=== PATIENT | female | born 1940 | race Caucasian/White ===

== ENCOUNTER → 2024-07-25 07:48 | Outpatient (REF) | payer OTHER, SELFPAY | LOC: RST 07:48 | PROVIDERS: ATTENDING PHYSICIAN Otolaryngology; FAMILY PHYSICIAN Internal Medicine; REFERRING PHYSICIAN Internal Medicine Gastroenterology | DX: R13.14 Dysphagia, pharyngoesophageal phase (principal); R63.30 Feeding difficulties, unspecified | CPT/HCPCS: 74230; 92611 ==

== ENCOUNTER 2024-09-08 19:22 | Observation (INO) | payer OTHER, SELFPAY ==
[2024-09-08] VITALS (9 sets, daily range): BP systolic 149–199; BP diastolic 72–100; BMI 20.9; BMI 20.2
--- NOTE | 2024-09-08 13:42 | ED.CVA ---
History of Present Illness
General
Chief Complaint: CVA/TIA Symptoms
Time Seen by Provider: 09/08/24 13:41
Onset of Stroke Symptoms
Onset of symptoms known: Yes
Date of onset of symptoms: 09/08/24
Time of onset of symptoms: 12:00
Time pt last seen normal is known: Yes
Date last time pt seen normal: 09/08/24
Time last time pt seen normal: 11:59
History of Present Illness
History of Present Illness:
TIME OF INITIAL ENCOUNTER: 1:45 PM
HPI: Had esophageal dilatations / botox Sunday at [place]. I spoke to the daughter over the phone initially who tells me that at 12pm today could not formulate words, labored breathing. Sent here by EMS. The patient currently has no specific
complaints
EXAM:
GENERAL: Appears somewhat generally weak
HEENT: Moist oral mucosa
CARDIOVASCULAR: No murmurs, normal heart rate, regular rhythm, No chest wall tenderness
PULMONARY: No respiratory distress, breath sounds are clear and equal
ABDOMEN: Soft with no peritoneal signs, no tenderness
NEUROLOGIC: 4+ out of 5 strength right upper extremity, no expressive aphasia currently, normal strength the lower extremities, she knows it is August and knows she is 84 years old
PSYCHIATRIC: Appropriate mental status, normal insight and judgement
EXTREMITIES: Decreased active range of motion at the right shoulder
SKIN: No rash, no lesions
NUMBER AND COMPLEXITY OF PROBLEMS ADDRESSED AT THE ENCOUNTER
� Chronic conditions affecting care: A-fib, high blood pressure
� Acute Exacerbation and/or Progression of Chronic Illness:
� Differential Diagnosis includes: CVA, TIA, electrolyte abnormality
AMOUNT AND/OR COMPLEXITY OF DATA TO BE REVIEWED AND ANALYZED
� I performed an independent evaluation of and my interpretation is:
EKG: Sinus 67, PAC, some artifact, nonspecific ST abnormality
CT: Noncontrast brain CT unremarkable
X-rays:
Laboratory Studies: CBC and chemistries unremarkable
Other:
� Review of other/old records: I reviewed speech evaluation note from last month
� Clinical information was obtained by an independent historian: I spoke to the daughter over the phone
� Prescriptions/Medications Considered but not given:
� Further testing considered but not performed:
RISK OF COMPLICATIONS AND/OR MORBIDITY OR MORTALITY OF PATIENT MANAGEMENT
� Social determinants of health affecting care: Lives at home
� Discussion with other providers: Discussed case with Dr. Ayers who recommended MRI brain
� Escalation of care including admission/observation vs risk of discharge considered:
ANY OTHER UPDATES:
3 PM: I reassessed patient and the patient now has a stroke scale of 0. She no longer has any right upper extremity weakness. There is no dysarthria but hoarse voice persists from unknown reason related to recent procedure at [place]. Family states
she does not have a history of atrial fibrillation and is in sinus right now (A-fib was listed on her chart).
Past History
Past History
ED Past Medical History: Arrthythmia, GERD and HTN
ED Past Surgical History: Orthopedic
Social History
Tobacco: Non-smoker
Alcohol: Occasional
Drug: None
Personal:
Living: with family
Phy Exam
Physical Exam
Physical Exam:
See HPI
Course
Orders/Labs/Results
Orders:
Orders
09/08/24 13:49
Electrocardiogram (*1) Urgent
Reason for Study: Hypertension, Benign
09/08/24 13:50
EKG- Treatment ONCE
09/08/24 13:52
CMP [Comprehensive Metabolic Panel] Urgent
Complete Blood Count/With Diff Urgent
09/08/24 13:55
CT Head W/o Iv Contrast Urgent
Comment:
Reason For Exam: expressive aphasia, ?RUE weak
09/08/24 15:12
PTT Urgent
Prothrombin Time Urgent
Troponin I Urgent
09/08/24 15:39
Urinalysis Reflex To Culture Urgent
Date Specimen was Collected: 09/08/24
Time Specimen was Collected: 15:13
09/08/24 16:04
Lipid Profile [Cardiovascular Evaluation] Routine
Comment: May add to blood work in lab
MR Brain Without Contrast Routine
Comment:
Reason For Exam: Aphasia,? Stroke
Recent pill cam endoscopy?: No
09/08/24 16:05
MA [facility] Routine
Comment:
Reason For Exam: intracranial stenosis
Recent pill cam endoscopy?: No
MA Neck With Contrast Routine
Comment:
Reason For Exam: Stenosis
Recent pill cam endoscopy?: No
Abnormal Lab Results
09/08/24
13:52
MCH 31.2 H pg
(27.0-31.0)
Absolute Lymphs (auto) 3.8 H 10^3/uL
(1.2-3.4)
Neutrophils % 42.1 L %
(42.2-75.2)
Glucose 108 H mg/dl
(70-99)
09/08/24 13:52
09/08/24 13:52
Vital Signs
Initial and Last Documented VS:
Initial Vital Signs
Temp Pulse Resp BP Pulse Ox
98.0 F 66 18 199/100 95
09/08/24 13:41 09/08/24 13:41 09/08/24 13:41 09/08/24 13:41 09/08/24 13:41
Last Documented Vital Signs
Temp Pulse Resp BP Pulse Ox
98.0 F 72 19 172/89 95
09/08/24 13:41 09/08/24 15:15 09/08/24 15:15 09/08/24 15:11 09/08/24 13:41
*Critical Care Note
Total Time (30-74mins, 75-104mins- exclusive of procedures): Not Applicable
ED Attending Note
-
Portions of this chart may have been created with voice recognition software.� Occasional wrong word or��sound alike� substitutions may have occurred due to the inherent limitations of voice recognition software.
Discharge Plan
Departure
Prescriptions:
No Action
cholecalciferol (vitamin D3) 1,000 UNITS tablet
1,000 units PO DAILY
multivitamin with folic acid [Tab-A-Iraida] 1 TABLET tablet
1 tab PO DAILY
cyanocobalamin (vitamin B-12) 1,000 MCG tablet
1,000 mcg PO DAILY
amlodipine 2.5 MG tablet
2.5 mg PO DAILY
acetaminophen [Tylenol Extra Strength] 500 MG tablet
1,000 mg PO HSPRN PRN (Reason: mildpain)
omeprazole 20 MG tablet,delayed release (DR/EC)
20 mg PO DAILY
carvedilol 6.25 MG tablet
6.25 mg PO BID Qty: 60 2RF
nitroglycerin 0.4 MG tablet, sublingual
0.4 mg sublingual [id number] PRN (Reason: Chest pain) Qty: 1 0RF
aspirin 81 MG tablet,chewable
81 mg PO DAILY 0RF
cefdinir 300 mg capsule
300 mg PO BID 10 Days Qty: 20 0RF
lidocaine [Lidoderm] 5 % adhesive patch,medicated
1 patch topical DAILY Qty: 30 0RF
methylprednisolone [Medrol (Ovidio)] 4 mg tablets,dose pack
See Rx Instructions .ROUTE .COMPLEX Qty: 21 0RF
Rx Instructions:
orally per package directions
Interventions
Interventions:
*Risk Screen - Suicide Last Done: 09/08/24 13:41
*General Assessment Last Done: 09/08/24 13:41
*Neglect/Abuse Screening Last Done: 09/08/24 13:41
*ED COVID-19 Vaccine History Last Done: 09/08/24 13:41
ED- Pulmonary Assessment Last Done: 09/08/24 13:41
ED- Neurological Assessment Last Done: 09/08/24 13:41
ED- Cardiac Assessment Last Done: 09/08/24 13:41
Discharge Date and Time
Print Language: PASHTO
[2024-09-08 14:07] LABS: % Eosinophils 2.7 % (0-6); % Immature Granulocytes 0.2 % (0-0.5); % Neutrophils 42.1 % (42.2-75.2); Absolute Basophils 0.1 10^3/uL (0-0.2); Absolute Eosinophils 0.2 10^3/uL (0-0.7); Absolute Lymphocytes 3.8 10^3/uL (1.2-3.4); Absolute Monocytes 0.6 10^3/uL (0.1-0.6); Absolute Neutrophils 3.4 10^3/uL (1.4-6.5); Hematocrit 43.5 % (37.0-47.0); Hemoglobin 14.8 g/dL (12.0-16.0); Mean Corpuscular Hgb 31.2 pg (27.0-31.0); Mean Corpuscular Volume 91.8 fL (81.0-99.0); Mean Platelet Volume 9.8 fL (7.4-10.4); Nucleated Red Blood Cells % 0 %; Platelet Count 261 10^3/uL (130-400); Red Blood Cell Count 4.74 10^6/uL (4.20-5.40); White Blood Cell Count 8.1 10^3/uL (4.8-10.8)
[2024-09-08 14:25] LABS: ALT (SGPT) 15 U/L (0-35); AST (SGOT) 23 U/L (14-36); Alkaline Phosphatase 78 U/L (38-126); Blood Urea Nitrogen 17 mg/dl (7-17); Calcium 9.1 mg/dl (8.4-10.2); Carbon Dioxide 25 mmol/L (22-30); Chloride 105 mmol/L (98-107); Estimated Creatinine Clearance 44 ml/min; Glucose 108 mg/dl (70-99); Potassium 4.2 mmol/L (3.5-5.1); Sodium 140 mmol/L (135-145); Total Bilirubin 0.9 mg/dl (0.2-1.3); Total Protein 6.6 g/dl (6.3-8.2); eGFR > 60.00
--- NOTE | 2024-09-08 15:35 | CON.NEURO ---
Neuro Assessment/Plan
Assessment
IMPRESSIONS/RECOMMENDATIONS:
Abrupt onset aphasia beginning gradually after a botulinum toxin injection and esophageal dilatation in a patient with significant hypertension
Differential diagnosis includes hypertensive encephalopathy also producing the patient's transient nausea and headache. Possibility of stroke is not eliminated
Plan
Continue aspirin 81 mg daily which had been discontinued 4 days prior to the recent procedure
Goal of near normotension
Check MRA head and neck based on the patient's intractable hypertension
Check MRI of brain
Provide antinausea agents to treat patient's residual migraine headache
Stroke educational materials to be provided
Speech therapy evaluation
Will continue to follow patient. Thank you.
Consultation
Order
Date of Consultation: 09/08/24
Requesting Provider: Emergency department provider
Reason for Consult: Aphasia
Subjective/Objective
Subjective Data
Date of Service: September 08, 2024
Right handed female patient presenting with new sudden onset aphasia.
Reports that speech has not been at baseline since she had Botox injections at [place] this past Sunday (4 days ago).
Patient was talking on the phone with her son when she had sudden onset of trouble with her speech about 1200 today. Speech changes after worst lasted 5-10 minutes.
Denies vision changes
Does report slight right sided headache starting this am which has improved.
She does admit to headaches with elevated blood pressure. Recently she has had frequent elevations in BP.
(+) nausea enroute to the hospital.
No trouble with balance
Pt reports severe diarrhea yesterday
No issues with bladder or bowel
Daughter felt she was SOB and laboring to speak.
Denies any history of atrial fibrillation.
This was second round of Botox. The last was 5 years ago.
ASA was held 4 days prior to procedure
Objective Data
Vital Signs
Temp Pulse Resp BP Pulse Ox
36.7 C 72 19 172/89 95
10/21/24 13:41 09/08/24 15:15 09/08/24 15:15 09/08/24 15:11 09/08/24 13:41
Lab Results
09/08/24 13:52
09/08/24 13:52
PT Cancelled 09/08/24 13:52
INR Cancelled 09/08/24 13:52
APTT Cancelled 09/08/24 13:52
Sodium 140 mmol/L (135-145) 09/08/24 13:52
Potassium 4.2 mmol/L (3.5-5.1) 09/08/24 13:52
BUN 17 mg/dl (7-17) 09/08/24 13:52
Glucose 108 mg/dl (70-99) H 09/08/24 13:52
Calcium 9.1 mg/dl (8.4-10.2) 09/08/24 13:52
Patient Allergies
amoxicillin Allergy (Verified 10/03/23 11:27)
Unknown
ibuprofen [From Motrin] Allergy (Verified 10/03/23 11:27)
Swelling
pentazocine [From Talwin] Allergy (Verified 10/03/23 11:27)
Tongue Swelling
prochlorperazine [From Compazine] Allergy (Verified 10/03/23 11:27)
Swelling
Review of Systems
-
History Source: Patient
All other systems: Reviewed and negative
EENT: Swallowing Difficulty
Respiratory: Trouble Breathing (Now resolved)
Cardiac: Negative Chest Pain
Abdomen/GI: Diarrhea (The day after her procedure); Negative Incontinence of Stool
Neuro: Headache
Physical Exam
-
General: No Apparent Distress and Appears Stated Age
Eyes: OU Absent Papilledema, Round OU, [place] Conjunctivae and No Ptosis
HEENT: Anicteric, Moist Mucous Membranes and Other (Bleeding right soft palate)
Neck: Full Range of Motion
Respiratory: No Dyspnea
Cardiac: No JVD
GI: Non-distended
Skin: Unremarkable
Extremities: No Clubbing, No Cyanosis and No Edema
Psych: Negative Intact Judgement/Insight
Extended Neurological Exam
Mood & Affect: Mood Unremarkable and Affect Unremarkable
Attention Span & Concentration: Awake, Alert, Interactive and Mild Difficulty with 2 Step Request
Memory: Unremarkable
Tremor: Hand Tremor Absent and Head Tremor Absent
Speech: Quantity Unremarkable, Hoarse and Other (No difficulty with naming or reading)
Cranial Nerve II: Left Eye: Pupillary Reactivity Unremarkable, Pupillary Size Unremarkable and Visual Galindo Intact
Cranial Nerve II: Right Eye: Pupillary Reactivity Unremarkable, Pupillary Size Unremarkable and Visual [place]indo Intact
Cranial Nerves III, IV, : Extraocular Movement: Extraocular Movement Full in all Directions
Cranial Nerve VII: Facial Symmetry: Normal Facial Symmetry
Cranial Nerve VIII: Hearing: Unremarkable Hearing to Normal Conversational Volume
Cranial Nerves IX, X: Palate Movement: Palate Elevation Symmetric
Cranial Nerve XI: Shoulder Shrug: Unremarkable
Cranial Nerve XII: Tongue Protusion: Midline
Muscle Strength, Overall: Full Throughout
Muscle Bulk & Tone: Bulk Unremarkable and Tone Unremarkable
Pronator Drift: No Drift in Upper Extremities and No Drift in Lower Extremities
Deep Tendon Reflexes: Unremarkable Throughout
Touch Sensation: Unremarkable and Double Simultaneous Stimulation Unremarkable
Coordination: [id number] Testing Unremarkable
Babinski Sign: Absent Bilaterally
Data Reviewed
-
CT Head: Report Reviewed and Image Reviewed
MRI Head: Ordered
MRA Head: Ordered
MRA Neck: Ordered
Labs: Report Reviewed
Lipid Profile: Ordered
Reviewed with: Physician, Patient and Family
Old Records: Summarized
Medications
-
Home Medications
�Medication �Instructions �Recorded
cholecalciferol (vitamin D3) 25 1,000 units PO DAILY Supplement 08/08/19
mcg (1,000 unit) tablet
multivitamin with folic acid 400 1 tab PO DAILY Supplement 08/08/19
mcg tablet (Tab-A-Iraida)
acetaminophen 500 mg tablet 1,000 mg PO HSPRN PRN mildpain 06/24/21
(Tylenol Extra Strength)
amlodipine 2.5 mg tablet 2.5 mg PO DAILY Blood pressure 06/24/21
cyanocobalamin (vitamin B-12) 1,000 mcg PO DAILY Supplement 06/24/21
1,000 mcg tablet
omeprazole 20 mg tablet,delayed 20 mg PO DAILY Gastrointestinal 10/09/21
release issue
aspirin 81 mg chewable tablet 81 mg PO DAILY 10/16/21
carvedilol 6.25 mg tablet 6.25 mg PO BID #60 tabs 10/16/21
nitroglycerin 0.4 mg sublingual 0.4 mg sublingual [id number] PRN 10/16/21
tablet Chest pain ##1
cefdinir 300 mg capsule 300 mg PO BID 10 days #20 caps 10/03/23
lidocaine 5 % topical patch 1 patch topical DAILY #30 ea 10/03/23
(Lidoderm)
methylprednisolone 4 mg tablets in See Rx Instructions PO .COMPLEX 10/04/23
a dose pack (Medrol (Ovidio)) #21 ea
[2024-09-08 16:06] LABS: Troponin I < 0.012 ng/ml
[2024-09-08 16:22] LABS: Urine Albumin Negative (Neg - Trace); Urine Bilirubin Negative (Negative); Urine Character Clear (Clear); Urine Color Yellow; Urine Glucose Negative (Negative); Urine Ketone Negative (Negative); Urine Leukocyte 1+ (Negative); Urine Nitrite Negative (Negative); Urine Occult Blood Negative (Negative); Urine Urobilinogen Negative (Neg - 1+)
[2024-09-08 17:01] LABS: Urine Bacteria Few (Negative)
--- NOTE | 2024-09-08 18:13 | HPS.HSE ---
Addendum entered and electronically signed by CARRIE Young 09/08/24 19:08:
Botox was on 09/03/24 NOT 09/02
Original Note:
Family Physician
-
Family Physician:
Chief Complaint
-
Aphasia
History of Present Illness
84-year-old female whose granddaughter told EMS that her mother was having difficulty formulating her words at 12 PM. The patient states she noticed after eating soup she was having difficulty expressing her words while she was talking to her son
on the phone. She did states she had a frontal headache at that time which has currently resolved. She denies any weakness to her body. Her granddaughter is at bedside who noticed subtle left-sided facial droop with some slight slurring of words
and looking very tired. She reports she normally is very awake alert and active with very young great-grandchildren. She has history of esophageal dilations and history of Botox on Tuesday September 03, 2024. She had prior Botox injection in 2019
without any difficulty he also presented to the ER hypertensive 199/102. She denies fever, chills, chest pain, palpitations, shortness of, cough, abdominal pain, nausea, vomiting, diarrhea, urinary symptoms. She is past medical history of
hypertension, dysphagia secondary to esophageal stricture
Medical History
Past Medical History
Past Medical History: Reports Other
Additional Past Medical History:
Hypertension
Chronic dysphagia requiring esophageal dilation
Past Surgical History: Reports Other
Additional Past Surgical History:
cholecystitis requiring cholecystectomy and drainage tube September 2021
Tubal ligation
Cataract extraction bilateral
Botox esophageal area 2018
Social History
Tobacco: Non-smoker
Alcohol: None
Drug: None
Personal:
Living: With Family ()
Employment: Retired
Family History
Family History: Not pertinent
Allergies / Home Medications
Allergies reflects when Allergies were last updated in [facility].
Home Medications with original date entered in [facility]
Allergy/Medication List:
Allergies
Allergy/AdvReac Type Severity Reaction Status Date / Time
amoxicillin Allergy Unknown Verified 10/03/23 11:27
ibuprofen [From Motrin] Allergy Swelling Verified 10/03/23 11:27
pentazocine [From Talwin] Allergy Tongue Verified 10/03/23 11:27
Swelling
prochlorperazine Allergy Swelling Verified 10/03/23 11:27
[From Compazine]
Home Medications
aspirin 81 mg chewable tablet 81 mg PO DAILY 10/16/21
carvedilol 6.25 mg tablet 6.25 mg PO BID #60 tabs 10/16/21
Review of Systems
-
History Source: Patient and Family (Granddaughter at bedside)
A 12 point ROS was completed and negative except as noted: Yes
Constitutional: Reports Fatigue; Denies Fever or Chills
EENT: Reports Other (Slight left corner mouth droop); Denies Sore Throat or Mouth Swelling
Respiratory: Denies Cough or Trouble Breathing
Cardiac: Denies Chest Pain, Diaphoresis, Palpitations or Syncope
Abdomen/GI: Denies Abdominal Pain, Nausea, Vomiting, Diarrhea, Constipated, Bloody Stools or Black Stools
: Denies Dysuria, Frequency, Flank Pain, Incontinence, Difficulty Voiding or Urgency
Musculoskeletal: Denies Joint Pain or Edema
Skin: Denies Itching or Rash
Neurological: Reports Headache (Frontal currently resolved); Denies Dizzy
Endocrine: Reports No Symptoms
Hematologic/Lymphatic: Reports No Symptoms
Psych: Reports Calm
Physical Exam
Vital Signs
Vital Signs
Temp Pulse Resp BP Pulse Ox
98.0 F 84 20 195/94 95
09/08/24 13:41 09/08/24 17:37 09/08/24 17:37 09/08/24 17:37 09/08/24 13:41
Physical Exam
General: Conversant (Slight sluggish but appears very tired); No Pain or Fever
HEENT: NormoCephalic, Anicteric, Moist mucous membranes, PERRLA, [employer] Conjunctivae and No Ptosis
Respiratory: Clear; No Wheezes, Rales or Rhonchi
Cardiac: S1/S2 and Regular Rhythm; No Murmur, Rub, Gallop or Peripheral Edema
Breast: Deferred by me
GI: Soft, Non Tender, Non Distended, Normal Bowel Sounds and No Hepatosplenomegaly
Rectal: Deferred by Provider
Genito-urinary: Deferred by me
Musculoskeletal: No Clubbing, No Cyanosis and No Edema
Skin: Warm and Dry; No Rash
Neuro: AO x 3, Nonfocal/grossly intact, No Sensory Deficits, Slurred Speech (Slight slow slurring of speech, ), Facial Droop (slight corner of mouth droop) and Other (Sluggish [id number] exam); No Tremors
Psych: Calm
Laboratory Results
-
09/08/24 13:52
09/08/24 13:52
Laboratory Results
PT Cancelled 09/08/24 15:12
INR Cancelled 09/08/24 15:12
APTT Cancelled 09/08/24 15:12
Total Bilirubin 0.9 mg/dl (0.2-1.3) 09/08/24 13:52
AST 23 U/L (14-36) 09/08/24 13:52
ALT 15 U/L (0-35) 09/08/24 13:52
Alkaline Phosphatase 78 U/L (38-126) 09/08/24 13:52
Troponin I < 0.012 ng/ml 09/08/24 15:12
Data Reviewed
-
Diagnostic Radiology: Report Reviewed by me
CT Scan: Report Reviewed by me
MRI: Report Reviewed by me
Lab Data: Labs Reviewed by me
Impression/Plan
-
Impression/plan:
Admit to telemetry
#Aphasia/subtle left-sided facial droop concern for TIA versus CVA versus hypertensive encephalopathy
-Consult neurology
Neurochecks every 4 hours
-MRI/MRI brain neck
-Consult speech therapy
Continue aspirin 81 mg daily
-Goal near normotension
-Check lipid profile, HgbA1c
-Speech swallow eval
-PT/OT/case management eval
MRA neck/brain: No focal significant stenosis, aneurysm or occlusion
MRI brain: No acute intracranial abnormality mild atrophy small vessel ischemic disease
#Hypertensive urgency/HTN�benign
BP 199/100
-IV hydralazine 10 mg every 6 hours as needed SBP> 165 AGUILAR 110
-Continue carvedilol 6.25 mg twice daily and patient prophylactic aspirin 81 mg daily
CKD stage IIIb
Creat 0.8, CrCl 44
#Hx cholecystitis requiring cholecystectomy and drainage tube September 2021
#COVID-19 infection November 2020
DVT prophylaxis
SCDs
Full code
--- NOTE | 2024-09-08 19:09 | W.PN.UPDATE ---
Update Note
Progress Note Update
This is addendum to H&P written by Rebecca Son on 09/08/2024. Patient seen and examined independently with NEURO OPHTHALMOLOGIST.
84-year-old female past medical history of hypertension, CKD 3B, chronic dysphagia status post dilation and Botox injection 5 days ago for likely achalasia presenting with difficulty forming words at 12 PM with headache. Patient with blood pressure
of 199/100. No focal neurological deficits apart from subtle left facial droop and dysarthria, sluggish [id number] bilaterally.
MRI/MRA head and neck unremarkable. Neurology thinks possibly hypertensive encephalopathy versus TIA. Check speech and swallow evaluation. Blood pressure control with hydralazine. Start amlodipine 5 mg.
[2024-09-08] MEDS: NORVASC 5 MG PO (20:04)
[2024-09-08 20:17] LABS: COVID-19 Antigen Negative (Negative)
[2024-09-08 20:38] LABS: HDL Cholesterol 87 mg/dl; LDL Cholesterol, Calculated 113 mg/dl; Total Cholesterol 221 mg/dl (50-199); Triglyceride 106 mg/dl (10-149); Very Low Density Lipoprotein 21 mg/dl (0-30)
[2024-09-08 20:41] LABS: INR 1.09; PT 13.9 Sec (11.4-14.6)
[2024-09-08 20:42] LABS: APTT 27.6 Sec (23.4-35.0)
--- NOTE | 2024-09-08 20:45 | PTCARENOTE ---
Pt arrived onto floor @2044. Pt AAOx3 and able to walk into room with no assistance. Pt with no complaints of pain or SOB at this time. Pt oriented to room and call malcolm; will continue to monitor
[2024-09-08] MEDS: COREG 6.25 MG PO (21:09)
[2024-09-09] VITALS (8 sets, daily range): BP systolic 122–163; BP diastolic 66–86; PULSE 66; O2SAT 97; BMI 20.2
[2024-09-09 07:38] LABS: % Basophils 1.2 % (0-2); % Eosinophils 4.3 % (0-6); % Immature Granulocytes 0.2 % (0-0.5); % Lymphocytes 47.9 % (20.5-51.1); % Monocytes 9.6 % (1.7-9.3); % Neutrophils 36.8 % (42.2-75.2); Absolute Basophils 0.1 10^3/uL (0-0.2); Absolute Eosinophils 0.3 10^3/uL (0-0.7); Absolute Lymphocytes 2.9 10^3/uL (1.2-3.4); Absolute Monocytes 0.6 10^3/uL (0.1-0.6); Absolute Neutrophils 2.2 10^3/uL (1.4-6.5); Hematocrit 42.4 % (37.0-47.0); Hemoglobin 14.6 g/dL (12.0-16.0); Mean Corp Hgb Conc. 34.4 g/dL (33.0-37.0); Mean Corpuscular Hgb 31.4 pg (27.0-31.0); Mean Corpuscular Volume 91.2 fL (81.0-99.0); Mean Platelet Volume 9.8 fL (7.4-10.4); Nucleated Red Blood Cells % 0 %; Platelet Count 245 10^3/uL (130-400); Red Blood Cell Count 4.65 10^6/uL (4.20-5.40); White Blood Cell Count 6.1 10^3/uL (4.8-10.8)
[2024-09-09] MEDS: COREG 6.25 MG PO ×2 (07:38→20:00)
[2024-09-09] MEDS: LOW STRENGTH ASPIRIN 81 MG PO (07:38)
[2024-09-09] MEDS: NORVASC 5 MG PO (07:39)
[2024-09-09 08:12] LABS: ALT (SGPT) 13 U/L (0-35); AST (SGOT) 21 U/L (14-36); Albumin 3.6 g/dl (3.5-5.0); Alkaline Phosphatase 63 U/L (38-126); Blood Urea Nitrogen 15 mg/dl (7-17); Calcium 8.7 mg/dl (8.4-10.2); Carbon Dioxide 26 mmol/L (22-30); Chloride 105 mmol/L (98-107); Estimated Creatinine Clearance 58 ml/min; Glucose 96 mg/dl (70-99); Potassium 4.2 mmol/L (3.5-5.1); Sodium 142 mmol/L (135-145); Total Protein 6.2 g/dl (6.3-8.2); eGFR > 60.00
--- NOTE | 2024-09-09 09:09 | W.PN.HOSP.TC ---
Today's Communication/Plan
-
VSE tomorrow
Assessment / Plan
Assessment / Plan
HPI: 84-year-old female whose granddaughter told EMS that her mother was having difficulty formulating her words at 12 PM. The patient states she noticed after eating soup she was having difficulty expressing her words while she was talking to her
son on the phone. She did states she had a frontal headache at that time which has currently resolved. She denies any weakness to her body. Her granddaughter is at bedside who noticed subtle left-sided facial droop with some slight slurring of
words and looking very tired. She reports she normally is very awake alert and active with very young great-grandchildren. She has history of esophageal dilations and history of Botox on Tuesday September 03, 2024.
#Transient aphasia/transient left facial droop
#Hypertensive encephalopathy
Brain MRI negative for acute CVA
Head and neck MRA negative
Hemoglobin A1c 5.7, LDL 113 (not fasting)
Continue aspirin 81 mg daily, start atorvastatin 40 mg at bedtime
Follow-up carotid artery ultrasound
PT/OT/SPL
#Chronic dysphagia
Continue soft diet, for VSE tomorrow
#Hypertensive urgency
Blood pressure controlled with adding amlodipine 5 mg daily
Continue Coreg 6.25 mg twice a day
#Chronic achalasia
Status post Botox injection 09/03/2024
#Hyperlipidemia
Start atorvastatin 40 mg at bedtime
DVT prophylaxis�subcu Lovenox
Full code
Updated daughter on phone 09/09
Total time spent to see the patient on the floor, examine the patient, review data and lab results, discuss treatment plan with patient, nursing staff around 53 minutes.
Physical Exam
General: No acute distress
HEENT: Normocephalic, Atraumatic, EOMI, MMM
Respiratory: Clear to Auscultation bilaterally
Cardiac: Normal S1/S2, Regular Rate and Rhythm
GI: Soft, Nontender, Nondistended, Normal Bowel Sounds
Extremities: No Clubbing, Cyanosis, or Edema
Neuro: Nonfocal/Grossly Intact
Psych: Calm, Cooperative
Anticipated Discharge: 24 - 48 hours
Subjective/Interval History
-
Date of Service: September 09, 2024
Aphasia resolved. No left facial droop. She does have a difficulty swallowing. No fever, no vomiting.
Objective Data
-
Labs:
Laboratory Results
09/09/24
07:02
WBC 6.1
Hgb 14.6
Hct 42.4
Plt Count 245
Sodium 142
Potassium 4.2
Chloride 105
Carbon Dioxide 26
BUN 15
Creatinine 0.6
Glucose 96
Calcium 8.7
Total Bilirubin 1.0
AST 21
ALT 13
Alkaline Phosphatase 63
Vital Signs:
Vital Signs
Temp Pulse Resp BP Pulse Ox
98.5 F 64 20 151/71 96
09/09/24 07:28 09/09/24 07:28 09/09/24 07:28 09/09/24 07:28 09/09/24 07:28
I&O
09/08/24 09/09/24 09/10/24
06:59 06:59 06:59
Intake Total 240 / 240
Balance 240 / 240
[2024-09-09 09:33] LABS: Glycohemoglobin (HgbA1c) 5.7 % (4.0-5.6)
--- NOTE | 2024-09-09 12:10 | CM ---
database development project manager reviewed patient's chart and met with patient and patient lives with her spouse in a multilevel home with 12 steps to enter, patient is independent with adl's and ambulation, no dme, except for a cane that she occasionally uses.
PCP: Dr. Adri Harris
Pharmacy: [facility]
Plan; Home with possible visiting nurses, options reviewed and patient has selected [facility].
--- NOTE | 2024-09-09 12:20 | VNURNOTE ---
Home Health Liaison spoke with patient's spouse Heath to discuss [facility] nurse/therapy, visits, schedule and homebound status. He is agreeable and understands that visits at home will be 2-3 x per week to assess and teach medical management. Provided
spouse with [facility] contact information. He is aware that [facility] will contact them for start of care in 1-2 days after discharge from .
[facility] referral completed in [facility].
--- NOTE | 2024-09-09 13:25 | PTOTSP ---
Speech Language Pathology
Pt seen for clinical bedside swallow evaluation. OP VSE completed 07/25/24. Significant pharyngeal-esophageal dysphagia with severe pharyngeal stasis. No aspiration, but pt deemed at high risk for airway obstruction, and regular solid was not
trialed on VSE for this reason. Recommendations were for IDDSI Level 5 (minced/moist) and thin liquids with follow up with GI and repeat VSE once GI treatments completed.
This date, hoarse/weak vocal quality noted with weak and ineffective cough. Erythema on soft palate noted. Pt reported pain in throat as well. She stated this all started after endoscopy (with intubation) and has not improved. P.O. trials of
thin liquids via cup and puree provided. Slight wet vocal quality with thin liquids. Weak cued cough noted. She reported pharyngeal stasis with puree. Liquid wash not effective per her report. She reported increased coughing with liquids since
endoscopy as well. Discussed more solid diets increasing risk for airway obstruction, and she verbalized understanding, but wants to stay with current diet as of now.
Concern for vocal fold integrity potentially leading to decreased airway protection and increased pharyngeal dysphagia at this time.
Recommend:
(1) VSE
(2) IDDSI Level 6 (Soft/bite-sized) per pt preference with thin liquids
(3) Aspiration precautions: sit upright, small sips, multiple swallows
(4) Esophageal precautions
(5) ENT given report of voice changes since endoscopy with intubation 09/03 with no improvement since that time and resultant increased dysphagia symptoms
(6) Meds as tolerated
(7) BUSINESS OPERATIONS SPECIALIST to continue to follow
[2024-09-09] MEDS: LOVENOX 40 MG SC (16:54)
[2024-09-09] MEDS: LIPITOR 40 MG PO (16:55)
[2024-09-10 03:21] VITALS: BP 136/70
[2024-09-10] MEDS: COREG 6.25 MG PO (07:25)
[2024-09-10] MEDS: LOW STRENGTH ASPIRIN 81 MG PO (07:25)
[2024-09-10] MEDS: NORVASC 5 MG PO (07:25)
[2024-09-10 07:51] VITALS: BP 165/99
--- NOTE | 2024-09-10 08:36 | W.PN.HOSP.TC ---
Addendum entered and electronically signed by Monty Faye MD 09/10/24 14:49:
Patient is requesting discharge.
She wishes to see her own ENT doctor outpatient.
Will cancel ENT consult here and discharge.
Original Note:
Today's Communication/Plan
-
Consult ENT
Assessment / Plan
Assessment / Plan
HPI: 84-year-old female whose granddaughter told EMS that her mother was having difficulty formulating her words at 12 PM. The patient states she noticed after eating soup she was having difficulty expressing her words while she was talking to her
son on the phone. She did states she had a frontal headache at that time which has currently resolved. She denies any weakness to her body. Her granddaughter is at bedside who noticed subtle left-sided facial droop with some slight slurring of
words and looking very tired. She reports she normally is very awake alert and active with very young great-grandchildren. She has history of esophageal dilations and history of Botox on Tuesday September 03, 2024.
#Transient aphasia/transient left facial droop
#Hypertensive encephalopathy
Brain MRI negative for acute CVA
Head and neck MRA negative
Hemoglobin A1c 5.7, LDL 113 (not fasting)
Continue aspirin 81 mg daily, start atorvastatin 40 mg at bedtime
Follow-up carotid artery ultrasound
PT/OT/SPL
#Chronic dysphagia
#Voice hoarseness, erythema of oropharynx status post endoscopy with Botox 09/03
VSE concerning for worsening dysphagia
SPL recommends pureed diet with thin liquids
Consult ENT to assess for vocal cord dysfunction versus oropharyngeal trauma from endoscopy
#Hypertensive urgency
Blood pressure controlled with adding amlodipine 5 mg daily
Continue Coreg 6.25 mg twice a day
#Chronic achalasia
Status post Botox injection 09/03/2024
#Hyperlipidemia
Start atorvastatin 40 mg at bedtime
DVT prophylaxis�subcu Lovenox
Full code
Updated daughter on phone 09/09
Total time spent to see the patient on the floor, examine the patient, review data and lab results, discuss treatment plan with patient, nursing staff around 50 minutes.
Physical Exam
General: No acute distress
HEENT: Normocephalic, Atraumatic, EOMI, MMM
+horase voice
Oropharynx with a column of erythema
Respiratory: Clear to Auscultation bilaterally
Cardiac: Normal S1/S2, Regular Rate and Rhythm
GI: Soft, Nontender, Nondistended, Normal Bowel Sounds
Extremities: No Clubbing, Cyanosis, or Edema
Neuro: Nonfocal/Grossly Intact
Psych: Calm, Cooperative
Anticipated Discharge: Within 24 hours
Subjective/Interval History
-
Date of Service: September 10, 2024
Patient denies throat pain. She is tolerating her pur�ed diet. No fever, no vomiting.
Objective Data
-
Vital Signs:
Vital Signs
Temp Pulse Resp BP Pulse Ox
97.6 F 75 16 165/99 94
09/10/24 07:51 09/10/24 07:51 09/10/24 07:51 09/10/24 07:51 09/10/24 07:51
I&O
09/09/24 09/10/24 09/11/24
06:59 06:59 06:59
Intake Total 240 / 240 720 / 720
Balance 240 / 240 720 / 720
[2024-09-10 08:48] LABS: HDL Cholesterol 80 mg/dl; LDL Cholesterol, Calculated 133 mg/dl; Total Cholesterol 233 mg/dl (50-199); Triglyceride 104 mg/dl (10-149); Very Low Density Lipoprotein 20 mg/dl (0-30)
--- NOTE | 2024-09-10 09:15 | PTOTSP ---
Speech Language Pathology
VIDEOFLUOROSCOPIC SWALLOWNG EXAMINATION (VSE) completed. Mod-severe pharyngeal dysphagia noted, slightly worsened compared to VSE 07/25/24, which was completed as an outpatient. With solids, pt had to swallow 2-3 times for even a small portion to
enter esophagus. Pt is at risk for airway obstruction from residue. Trialed multiple strategies, which were ineffective. Supraglottic penetration which did not fully clear (PAS 3) noted with thin liquids via tsp, mildly thick liquids via tsp,
puree, and regular solids. Penetration to the level of the vocal folds (PAS 5) noted with thin liquid via cup. No aspiration noted with consistencies trialed, although pt is at higher risk for this. On esophageal sweep, residue noted, although
appeared decreased compared to VSE 07/25/24.
Pt is at a high risk for aspiration and airway obstruction. Compared to VSE completed 07/25/24, similar amount of pharyngeal residue noted with increased amount of penetration. Pt stated swallowing seems worse today than yesterday and continues to
endorse hoarse vocal quality/weak cough, observed by ENTRY OPERATOR, since procedure 09/03. Pt continues to report that this has not improved since procedure. ENT ordered. Discussed increased risk with increased textures. Pt does not like pureed items, but
discussed decreased risk with this, although risk still involved. Pt agreeable for short-term.
Recommend:
(1) IDDSI Level 4 (Puree) and Thin Liquids. Pt unlikely to maintain nutrition/hydration via P.O. alone at this time
(2) Aspiration precautions: sit upright during meals and for at least 30 minutes post meals/until food feels like it has cleared pharynx, slow rate, single sips, frequent dry swallows
(3) Meds crushed in puree. Will likely be problematic with any method of delivery
(4) ENT as ordered
(5) ENTRY OPERATOR to continue to follow
[2024-09-10 11:30] VITALS: BP 124/73
--- NOTE | 2024-09-10 14:49 | W.DCSUMMARY ---
Discharge Summary
Discharge Data
Date of Admission: 09/08/24
Date of Discharge: 09/10/24
-
Pending Results: No
Hospital Course
Discharge diagnosis:
Transient aphasia/transient left facial droop
Hypertensive encephalopathy
Hypertensive urgency
Chronic dysphagia
Voice hoarseness, erythema of the oropharynx concerning for trauma status post endoscopy for her Botox injection 09/03/2024
Chronic achalasia
Hyperlipidemia
Hospital course:
84-year-old female with a past medical history of chronic dysphagia secondary to achalasia, and hypertension presented with transient aphasia and transient left facial droop. Brain MRI was negative. She was found to be severely hypertensive in the
emergency room, blood pressure peaked at 199/100. Patient was started on amlodipine 5 mg daily, and continued on Coreg 6.25 mg twice a day. Her blood pressure improved, and was 124/73 on the day of discharge.
Patient was found to have hyperlipidemia. LDL was high at 133. She was started on atorvastatin 40 mg at bedtime. She was continued on her home aspirin 81 mg daily.
Patient was seen in conjunction with speech pathology. She usually eats a soft diet at home. Speech pathology recommends a pur�ed diet. She has erythema of her oropharynx and hoarseness of her voice since her endoscopic Botox injection on
09/03/2024. VSE shows laryngeal penetration with high aspiration risk. ENT was consulted, and was going to see the patient. However, patient decided that she wanted to be discharged home instead of waiting to be seen by ENT. She prefers to see
her own ENT doctor outpatient.
Patient needs to follow-up of her previous ENT doctor, and her primary care doctor in 1 week.
Disposition: Home self-care
Discharge planning: Required 40-minutes
Discharge Plan
-
Patient Disposition: Home (Routine Discharge)
Discharge Diagnosis/Procedures: Transient aphasia/facial droop, hypertensive urgency, hoarseness, achalasia with recent Botox, hyperlipidemia
Condition: Fair
Additional Diets: Pur�ed diet, Ensure twice a day
Activity: As tolerated
Other Services: PT
Activity Restrictions/Additional Instructions:
Please follow-up with your primary care doctor in 1 week, and ENT as soon as possible.
Referrals:
Adri Michael MD [Family Provider] - in one week
Prescriptions:
New
atorvastatin 40 mg Tablet
40 mg PO QPM Qty: 30 0RF
amlodipine 5 mg Tablet
5 mg PO DAILY Qty: 30 0RF
Continued
carvedilol 6.25 MG tablet
6.25 mg PO BID Qty: 60 2RF
aspirin 81 MG tablet,chewable
81 mg PO DAILY 0RF
Discharge Orders:
Discharge Patient (As Directed); Ordered 09/10/24
Ordered By: Monty Faye
Discharge Date and Time
Discharge Date/Time: 09/10/24 15:20
Print Language: TAMAZIGHT
--- NOTE | 2024-09-10 15:14 | CM ---
Patient switched to OBS, renee letter completed today, home no needs.
Plan; Home no needs.
== END 2024-09-10 15:20 | disposition home or self-care (01) ==
LOC: 4 WEST ACU 19:22
PROVIDERS: Clinical Nurse Specialist Family Health; ADMITTING PHYSICIAN Hospitalist; ATTENDING PHYSICIAN Family Medicine; EMERGENCY PHYSICIAN Emergency Medicine; FAMILY PHYSICIAN Internal Medicine; OTHER PHYSICIAN Psychiatry & Neurology Neurology
DX: I67.4 Hypertensive encephalopathy (principal); R53.1 Weakness; R29.810 Facial weakness; R06.4 Hyperventilation; I48.91 Unspecified atrial fibrillation; R49.0 Dysphonia; R47.01 Aphasia; I16.0 Hypertensive urgency; R13.10 Dysphagia, unspecified; K22.0 Achalasia of cardia; R51.9 Headache, unspecified; K22.2 Esophageal obstruction; E78.5 Hyperlipidemia, unspecified; I12.9 Hypertensive chronic kidney disease with stage 1 through stage 4 chronic kidney disease, or unspecified chronic kidney disease; K21.9 Gastro-esophageal reflux disease without esophagitis; N18.32 Chronic kidney disease, stage 3b; I49.8 Other specified cardiac arrhythmias; Z79.82 Long term (current) use of aspirin; I73.9 Peripheral vascular disease, unspecified; Z88.6 Allergy status to analgesic agent; Z88.0 Allergy status to penicillin; Z88.8 Allergy status to other drugs, medicaments and biological substances; Z90.49 Acquired absence of other specified parts of digestive tract; Z86.16 Personal history of COVID-19; Z11.52 Encounter for screening for COVID-19
CPT/HCPCS: 70450; 70544; 70548; 70551; 74230; 80053; 80061; 81003; 81015; 83036; 84484; 85025; 85610; 85730; 87086; 87811; 92610; 92611; 93005; 93880; 97162; 97166; 99285; A9585; G0378

== ENCOUNTER 2025-06-19 12:14 | Emergency (ER) | payer OTHER, SELFPAY ==
[2025-06-19] VITALS (7 sets, daily range): BP systolic 156–198; BP diastolic 69–94; BMI 19.2
--- NOTE | 2025-06-19 15:51 | ED.GENMED ---
History of Present Illness
General
Chief Complaint: Heart Rate Problem
Source: patient
Exam Limitations: none
Time Seen by Provider: 06/19/25 15:39
Nursing documentation reviewed up to this point in time: agreed with except (pt denies a fluttering sensation )
History of Present Illness
History of Present Illness:
Patient is an 85-year-old female presents to the ER for evaluation. Triage note reports the patient has a fluttering sensation in her left chest. She denies a fluttering sensation. She reports to me that she has had intermittent' zings' in her
left breast area over the past several days. Last for seconds at a time. She reports she does not feel that this is in her chest. She denies any associated shortness of breath. She has no pain now.
this started after she fell on her left side on Sunday. She denies any head injury. no neck pain. no headache no vomiting. she is not on blood thinners. She denies any pain with deep breath denies any shortness of breath.. Denies any recent
coughing fever chills. She has no cardiac history. She does not smoke.
She came here today because she is going on vacation tomorrow and her daughter wanted her to get evaluated.
Past History
Past History
ED Past Medical History: Arrthythmia, GERD and HTN
ED Past Surgical History: Orthopedic
Social History
Tobacco: Non-smoker
Alcohol: Occasional
Drug: None
Personal:
Living: with family
Phy Exam
General Physical Exam
General Presentation: no apparent distress
General age: appears stated age
General Skin: warm and dry
General Habitus: normal
General Mental: alert
General Hydration: appears well hydrated
Cardiovascular Exam
Cardiovascular Exam: regular rate/rhythm, no murmur and normal peripheral pulses
Pulmonary Exam
Pulmonary Exam: lungs clear, no respiratory distress and other (Normal breast Inspection on exam mildly tender to left middle anterior breast, no ecchymosis or abrasions to chest or ribs no rib tenderness no crepitus)
Neurological Exam
Neurological Exam: alert and oriented x3
Musculoskeletal Exam
Musculoskeletal Exam: full ROM
Skin Exam
Skin Exam: normal color
Psychiatric Exam
Psychiatric Exam: normal mood/affect
Course
Orders/Labs/Results
Orders:
Orders
06/19/25 12:21
EKG [Electrocardiogram (*1)] Urgent
Reason for Study: Palpitations
EKG- Treatment ONCE
06/19/25 16:01
Comprehensive Metabolic Panel Urgent
06/19/25 17:26
Chest [CR Chest - 2 Views ] Urgent
Comment:
Reason For Exam: cp
06/19/25 17:51
Complete Blood Count/With Diff Urgent
Troponin I Urgent
Abnormal Lab Results
06/19/25 06/19/25
16:01 17:51
MCH 32.0 H pg
(27.0-31.0)
BUN 18 H mg/dl
(7-17)
Creatinine 0.5 L mg/dL
(0.6-1.0)
06/19/25 17:51
06/19/25 16:01
Vital Signs
Initial and Last Documented VS:
Initial Vital Signs
Temp Pulse Resp BP Pulse Ox
98.1 F 63 18 198/89 98
06/19/25 12:16 06/19/25 12:16 06/19/25 12:16 06/19/25 12:16 06/19/25 12:16
Last Documented Vital Signs
Temp Pulse Resp BP Pulse Ox
98.1 F 96 17 156/72 96
06/19/25 19:32 06/19/25 20:33 06/19/25 20:15 06/19/25 20:33 06/19/25 20:15
MDM/Problems Addressed
Differential Diagnosis Includes:
Not limited to chest wall contusion, rib contusion
MDM/Problems Addressed:
Symptoms are more likely muscular, soft tissue pain over left breast from recent fall. She is in no acute distress she has no cardiac history she describes' zings of pain which last for seconds at a time. She has had no pain here. She has no pain
with deep breath lungs are clear no rib tenderness. She is not hypoxic normal cardiac troponin no history of cardiac disease no acute findings on EKG. Will DC with Tylenol Motrin. She has not required anything for discomfort here in the ER.'
Chest x-ray reviewedwith radiology small left lower pleural effusion
*Radiology
Radiology exam reviewed: radiology read reviewed
*Pulse Oximetry
SaO2: 98
Oxygen Mode of Delivery: Room air
Patient hypoxic: no
*EKG
Interpreted by ED Provider?: Yes
Interpretation: normal
Heart Rate: 62
Rate: normal
Rhythm: sinus
Ischemia: no ischemia
*Critical Care Note
Total Time (30-74mins, 75-104mins- exclusive of procedures): Not Applicable
ED Attending Note
-
Portions of this chart may have been created with voice recognition software.� Occasional wrong word or��sound alike� substitutions may have occurred due to the inherent limitations of voice recognition software.
Discharge Plan
Departure
Patient Disposition: Home (Routine Discharge)
Date of Disposition: 06/19/25
Time of Disposition: 20:40
Patient with high blood pressure during this ER visit?: Yes
Condition: Fair
Covid-19: Not Applicable
Discharge Problem:
muscle and bone pain, chest wall pain
Instructions: Muscle, joint, and bone pain - Discharge instructions, Chest pain - Discharge instructions
Prescriptions:
No Action
carvedilol 6.25 MG tablet
6.25 mg PO BID Qty: 60 2RF
aspirin 81 MG tablet,chewable
81 mg PO DAILY 0RF
atorvastatin 40 mg Tablet
40 mg PO QPM Qty: 30 0RF
amlodipine 5 mg Tablet
5 mg PO DAILY Qty: 30 0RF
Referrals:
Adri Michael MD [Family Provider, Internal Medicine]
Activity Restrictions/Additional Instructions:
As discussed symptoms are likely muscular pain. Your labs were unremarkable here in the ER. Your do have a small left lower pleural effusion. Follow-up with your family doctor for reevaluation of this. Follow-up with your family doctor in the
next several days and return if any worsening of symptoms. You may take Tylenol as needed for pain.
Interventions
Interventions:
*Risk Screen - Suicide Last Done: 06/19/25 12:16
*General Assessment Last Done: 06/19/25 12:16
*Neglect/Abuse Screening Last Done: 06/19/25 12:16
*ED- Fall Risk Assessment Last Done: 06/19/25 16:15
*ED COVID-19 Vaccine History Last Done: 06/19/25 12:16
ED- Cardiac Assessment Last Done: 06/19/25 19:32
ED- Pulmonary Assessment Last Done: 06/19/25 19:34
Discharge Date and Time
Print Language: MAORI
[2025-06-19 16:22] LABS: ALT (SGPT) 15 U/L (0-35); AST (SGOT) 24 U/L (14-36); Albumin 4.1 g/dl (3.5-5.0); Alkaline Phosphatase 71 U/L (38-126); Blood Urea Nitrogen 18 mg/dl (7-17); Calcium 8.6 mg/dl (8.4-10.2); Carbon Dioxide 28 mmol/L (22-30); Chloride 106 mmol/L (98-107); Estimated Creatinine Clearance 54 ml/min; Glucose 89 mg/dl (70-99); Potassium 4.1 mmol/L (3.5-5.1); Sodium 140 mmol/L (135-145); Total Protein 6.7 g/dl (6.3-8.2); eGFR > 60.00
[2025-06-19 17:57] LABS: Hematocrit 43.8 % (37.0-47.0); Hemoglobin 14.9 g/dL (12.0-16.0); Mean Corp Hgb Conc. 34.0 g/dL (33.0-37.0); Mean Corpuscular Volume 94.0 fL (81.0-99.0); Nucleated Red Blood Cells % 0 %; Platelet Count 220 10^3/uL (130-400); Red Cell Dist. Width 12.7 % (11.5-14.5)
[2025-06-19 18:21] LABS: Troponin I < 0.012 ng/ml
== END 2025-06-19 20:52 | disposition home or self-care (01) ==
LOC: EMR 12:14
PROVIDERS: Emergency Medicine; Nurse Practitioner; EMERGENCY PHYSICIAN Emergency Medicine; FAMILY PHYSICIAN Internal Medicine
DX: R07.89 Other chest pain (principal); I49.8 Other specified cardiac arrhythmias; M89.8X9 Other specified disorders of bone, unspecified site; J90 Pleural effusion, not elsewhere classified; I10 Essential (primary) hypertension; K21.9 Gastro-esophageal reflux disease without esophagitis; Z91.81 History of falling; Z79.82 Long term (current) use of aspirin; Z88.6 Allergy status to analgesic agent; Z88.1 Allergy status to other antibiotic agents; Z88.8 Allergy status to other drugs, medicaments and biological substances
CPT/HCPCS: 99284; 71046; 80053; 84484; 85025; 93005